=== PATIENT | female | born 1940 | race Hispanic/Latino ===

== ENCOUNTER → 2017-04-07 | Outpatient (CLI) | payer MEDICARE, BC ==
--- NOTE | 2017-04-07 13:07 | REP ---
RIGHT CALCANEUS: Two views of the right calcaneus are performed. There is no acute fracture or dislocation. There is mild inferior and posterior calcaneal spurring. IMPRESSION: Mild calcaneal spurring. Signed by Javy Jordan MD 04/07/2017 01:55 P
== END ==
LOC: M RAD 12:12
PROVIDERS: ATTEND Physician Assistant
DX: M79.671 Pain in right foot (principal); M77.31 Calcaneal spur, right foot

== ENCOUNTER 2017-04-18 16:23 | Inpatient (IN) | payer MEDICARE, BC ==
[~2017-04-18] VITALS: Ht 160 cm; Wt 75.8 kg
[2017-04-18] MEDS ORDERED: OSTETAB4 PO (16:49)
[2017-04-18] MEDS ORDERED: SIMV10TA2 PO (16:49)
[2017-04-18] MEDS ORDERED: D3 A1000 PO (16:49)
[2017-04-18] MEDS ORDERED: FISH100049 PO (16:49)
[2017-04-18] MEDS ORDERED: SUPETAB25 PO (16:49)
[2017-04-18] MEDS ORDERED: PHILCAP4 PO (16:49)
[2017-04-18] MEDS ORDERED: MORPHINE 2 MG/ML 1ML SYRINGE IV PRN ×2 (17:15→22:15)
[2017-04-18] MEDS ORDERED: ONDANSETRON 4MG/2ML VIAL (J2405) IV ONE (17:15)
[2017-04-18] MEDS ORDERED: NS 1,000 ML IV ONE (17:15)
[2017-04-18 17:41] LABS: BASO % 0.3 % (0.0-1.0); EOS # 0.1 10^3/uL (0.0-0.50); EOS % 0.7 % (0.0-3.0); IMMATURE GRANULOCYTE % 0.3 % (0-0); LYMPH # 1.3 10^3/uL (1.5-4.5); LYMPH % 17.6 % (24.0-44.0); MEAN CORPUSCULAR HEMOGLOBIN 33.1 pg (27.0-33.0); MEAN CORPUSCULAR HGB CONC 33.9 g/dl (32.0-36.5); MEAN CORPUSCULAR VOLUME 97.7 fl (80.0-96.0); MONO # 0.7 10^3/uL (0.0-0.8); MONO % 10.1 % (0.0-5.0); NEUTROPHILS # 5.2 10^3/uL (1.8-7.7); PLATELET COUNT, AUTOMATED 210 10^3/uL (150-450); RED CELL DISTRIBUTION WIDTH 12.3 % (11.5-14.5); WHITE BLOOD COUNT 7.3 10^3/uL (4.0-10.0)
[2017-04-18 17:59] LABS: ALBUMIN 3.7 GM/DL (3.2-5.2); ALBUMIN/GLOBULIN RATIO 0.93 (1.00-1.93); ALKALINE PHOSPHATASE 226 U/L (45-117); ALT/SGPT 611 U/L (12-78); AMYLASE 25 U/L (25-115); ANION GAP 7 MEQ/L (8-16); AST/SGOT 345 U/L (7-37); BILIRUBIN,DIRECT 2.1 MG/DL (0.0-0.2); BILIRUBIN,TOTAL 3.3 MG/DL (0.2-1.0); BLOOD UREA NITROGEN 11 MG/DL (7-18); CALCIUM LEVEL 8.8 MG/DL (8.8-10.2); CARBON DIOXIDE LEVEL 28 MEQ/L (21-32); CHLORIDE LEVEL 105 MEQ/L (98-107); CREATININE FOR GFR 0.81 MG/DL (0.55-1.02); GLOMERULAR FILTRATION RATE > 60.0 (>39); GLUCOSE, FASTING 138 MG/DL (83-110); POTASSIUM SERUM 3.5 MEQ/L (3.5-5.1); SODIUM LEVEL 140 MEQ/L (136-145); TOTAL PROTEIN 7.7 GM/DL (6.4-8.2)
--- NOTE | 2017-04-18 18:16 | ECGEPIP ---
Stationary ECG Study [facility] - ED Test Date: 2017-04-18 Pat Name: DAVID HAYES Department: Room: - Gender: F [employer]: nilay : 1940 Requested By: VIVI PATTERSON PA-C. Order Number: [id number] Reading MD: Buck Harrell Measurements Intervals [place] Rate: 72 P: 7 ND: 134 QRS: 31 QRSD: 99 T: 34 QT: 303 QTc: 332 Interpretive Statements SINUS RHYTHM NONSPECIFIC ST & T-WAVE ABNORMALITY NO PRIORS FOR COMPARISON Electronically Signed On 04-18-2017 18:16:35 EST by Buck Harrell
--- NOTE | 2017-04-18 19:20 | REPUSA ---
Clinical history: Right upper quadrant pain. Findings: The pancreas is limited in visualization secondary to overlying bowel gas, but appears ge sly unremarkable. The liver demonstrates uniform echotexture and echogenicity, with no mass lesions. The gallbladder wall is thickened, measuring up to 4 mm. A positive sonographic Bautista's sign was raymundo cited. No gallstones are seen, but there is echogenic non-shadowing material within the gallbladder. The common bile duct measures 5 mm and is within normal limits. The right kidney measures 10.5 cm in length and is unremarkable. There is no ascites. Impression: Gallbladder sludge without evidence of gallstones. Mild gallbladder wall thickening. No b iliary ductal dilatation. However, there is a sonographic Bautista's sign. Follow-up is recommended as clinically indicated.
[2017-04-18] MEDS ORDERED: ISOVUE-370 76% 100ML VIAL (Q9967) As Ordered ONE (20:58)
--- NOTE | 2017-04-18 22:14 | HPEPDOC ---
[facility] Medical History & Physical Date of Admission Apr 18, 2017 History and Physical PRIMARY CARE PROVIDER: Unknown ATTENDING: Dr. Mary Ann Valdes CHIEF COMPLAINT: Abdominal pain HISTORY OF PRESENT ILLNESS: This is a 76-year-old female past medical history of hyperlipidemia presents complaining of abdominal pain. Patient states she's been having intermittent abdominal pain over the past week which is described as sharp and crampy with a bloating sensation. Patient states that the majority of her pain is in her right upper quadrant. Had some nausea however no vomiting. No diarrhea. No chest pain/shortness of breath/ palpitations. Patient does have chills however no fevers. Currently her abdominal pain has resolved after morphine, however she still has chills. In the ED, patient was found to have transaminitis, with concern for choledocholithiasis. CT abdomen and pelvis was ordered however still pending at this time. ED had spoken to Dr. Gaona with plan for ERCP tomorrow. PAST MEDICAL HISTORY: As per HPI PAST SURGICAL HISTORY: Hysterectomy, tonsillectomy, appendectomy SOCIAL HISTORY: Denies tobacco, alcohol, illicit drug use FAMILY HISTORY: Noncontributory ALLERGIES: Please see below. REVIEW OF SYSTEMS: HEENT: Denies sore throat/headache CARDIOVASCULAR: Denies chest pain/palpitations RESPIRATORY: Denies shortness of breath/cough GASTROINTESTINAL: denies nausea/vomiting GENITOURINARY: Denies dysuria/urinary urgency. MUSCULOSKELETAL: Denies myalgias/arthralgias NEUROLOGICAL: Denies any focal weakness HOME MEDICATIONS: Please see below. PHYSICAL EXAMINATION: Vitals: (see below) General: No acute distress, laying comfortably in bed. HEENT: Moist mucous membranes. Neck: No JVD or lymphadenopathy Cardiac: RRR, No murmurs Pulm: Clear to auscultation b/l. No wheezing, rhonchi Abd: NT/ND + BS Ext: No edema or cyanosis LABORATORY DATA: See below. IMAGING: Abdominal ultrasound 04/18/17 Impression: Gallbladder sludge without evidence of gallstones. Mild gallbladder wall thickening. No biliary ductal dilatation. However, there is a sonographic Bautista's sign. Follow-up is recommended as clinically indicated. CT abdomen and pelvis on 04/18/17 pending at this time MICROBIOLOGY: Please see below. ASSESSMENT/PLAN: 1. Choledocholithiasis with possible developing ascending cholangitis no fevers at this time however does have chills. Continue IV fluids. We'll start patient on Zosyn. Blood culture sent. CT of the pelvis pending. Abdominal ultrasound ( see above). Dr. Gaona plans on doing an ERCP tomorrow. Nothing by mouth. Consider surgical consultation after ERCP for possible cholecystectomy in the near future. 2. Hyperlipidemia-will hold by mouth meds for now. DVT prophylaxis heparin subcutaneous. Patient will follow by Dr. Mary Ann Valdes starting 04/19/17 at 7 AM. Vital Signs Vital Signs Date Time Temp Pulse Resp B/P (MAP) Pulse Ox O2 Delivery O2 Flow Rate FiO2 04/18/17 18:49 98.5 75 18 192/86 (121) 97 Room Air 167/82 (110) Laboratory Data Labs 24H Laboratory Tests 2 04/18/17 17:16: Immature Granulocyte % (Auto) 0.3H, White Blood Count 7.3, Red Blood Count 3.90L , Hemoglobin 12.9, Hematocrit 38.1, Mean Corpuscular Volume 97.7H, Mean Corpuscular Hemoglobin 33.1H, Mean Corpuscular Hemoglobin Concent 33.9, Red Cell Distribution Width 12.3, Platelet Count 210, Neutrophils (%) (Auto) 71.0H, Lymphocytes (%) (Auto) 17.6L, Monocytes (%) (Auto) 10.1H, Eosinophils (%) (Auto ) 0.7, Basophils (%) (Auto) 0.3, Neutrophils # (Auto) 5.2, Lymphocytes # (Auto) 1.3L, Monocytes # (Auto) 0.7, Eosinophils # (Auto) 0.1, Basophils # (Auto) 0.0, Immature Granulocyte # (Auto) 0.0, Nucleated Red Blood Cells % (auto) 0.0, Anion Gap 7L, Glomerular Filtration Rate > 60.0, Lactic Acid Level 1.0, Calcium Level 8.8, Aspartate Amino Transf (AST/SGOT) 345H, Alanine Aminotransferase (ALT /SGPT) 611H, Alkaline Phosphatase 226H, Total Bilirubin 3.3H, Direct Bilirubin 2.1H, Total Protein 7.7, Albumin 3.7, Albumin/Globulin Ratio 0.93L, Amylase Level 25, Lipase 85 04/18/17 17:41: Urine Appearance HAZY, Urine Color VANESSA, Urine pH 5.0, Urine Specific [place] 1.024, Urine Protein 1+H, Urine Glucose (UA) 1+H, Urine Ketones TRACEH, Urine Urobilinogen 4.0H, Urine Bilirubin 1+H, Urine Leukocyte Esterase 2+H, Urine Blood NEGATIVE, Urine Nitrite POSITIVE, Urine WBC (Auto) 19H, Urine RBC (Auto) 12H, Urine Hyaline Casts (Auto) 0, Urine Bacteria (Auto) 2+H, Urine Squamous Epithelial Cells 2, Urine Mucus (Auto) SMALL, Urine Sperm (Auto) CBC/BMP Laboratory Tests 04/18/17 17:16 Red Blood Count 3.90 L, Mean Corpuscular Volume 97.7 H, Mean Corpuscular Hemoglobin 33.1 H, Mean Corpuscular Hemoglobin Concent 33.9, Red Cell Distribution Width 12.3, Neutrophils (%) (Auto) 71.0 H, Lymphocytes (%) (Auto) 17.6 L, Monocytes (%) (Auto) 10.1 H, Eosinophils (%) (Auto) 0.7, Basophils (%) ( Auto) 0.3, Neutrophils # (Auto) 5.2, Lymphocytes # (Auto) 1.3 L, Monocytes # ( Auto) 0.7, Eosinophils # (Auto) 0.1, Basophils # (Auto) 0.0 Home Medications Scheduled (Osteo Bi-Flex Advanced Do) 1 Tab Tab, 1 TAB PO DAILY ([facility] YUPIQ Health) 1 Cap Cap, 1 CAP PO DAILY (Super B Complex Maxi) 1 Tab Tab, 1 TAB PO Q2D Cholecalciferol (D3 Adult) 1,000 Unit Chw, 1,000 UNIT PO DAILY Fish Oil (Fish Oil 1000 mg) 1 Cap Cap, 1 CAP PO DAILY Simvastatin (Simvastatin) 10 Mg Tab, 10 MG PO QHS Allergies Coded Allergies: Nitrofurantoin (Verified Allergy, Unknown, chest pain and difficulty breathing , 04/18/17) SEASONAL ALLERGIES (Verified Allergy, Unknown, 04/18/17) ALVIN PARMAR MD Apr 18, 2017 22:14
[2017-04-18] MEDS ORDERED: ONDANSETRON 4MG/2ML VIAL (J2405) IV PRN (22:15)
[2017-04-18] MEDS: NS 1,000 ML IV SCH (23:45)
[2017-04-19] MEDS ORDERED: PIPERACILLIN/TAZOBACTAM SOD 3.375 GM in APPROPRIATE DILUENT 1 EA IV SCH ×2
[2017-04-19] MEDS: HEPARIN SOD (PORCINE) 5000 UNITS/ML VIAL SC SCH ×3 (06:00→21:14)
--- NOTE | 2017-04-19 07:15 | REPUSA ---
CT of the abdomen and pelvis with contrast Clinical statement: Pain. Technique: Multiple axial CT images were obtained from the base of the lungs through the floor of the pelvis utilizing 5 mm axial slices after administration of oral and nonionic intravenous contrast. C oronal and sagittal reconstructions were also obtained. No comparison is available. Findings: Chest: The visualized lung bases are clear. Abdomen: The liver, spleen, pancreas, kidneys, gallbladder, and adrenal glands are unremarkable. The aorta is within normal limits. There is no evidence of abdominal lymphadenopathy or ascites. Pelvis: The bowel is unremarkable, with no obstructive or inflammatory changes. The urinary bladder i s within normal limits. The other pelvic structures appear grossly intact. There is no evidence of pe lvic lymphadenopathy or ascites. Bones: There are no suspicious osseous abnormalities seen. Multilevel degenerative disc disease with spondylosis is seen throughout the lumbar spine. Levoscoliosis is also noted. Impression: 1. No obstructive or inflammatory bowel changes. 2. Moderate scoliosis and spondylotic changes of the lumbar spine as described.
[2017-04-19] MEDS ORDERED: MORPHINE 2 MG/ML 1ML SYRINGE IV ONE (07:30)
[2017-04-19 07:58] LABS: BASO % 0.4 % (0.0-1.0); EOS % 0.6 % (0.0-3.0); IMMATURE GRANULOCYTE % 0.3 % (0-0); LYMPH # 1.7 10^3/uL (1.5-4.5); LYMPH % 22.9 % (24.0-44.0); MEAN CORPUSCULAR HEMOGLOBIN 32.2 pg (27.0-33.0); MEAN CORPUSCULAR VOLUME 94.8 fl (80.0-96.0); MONO # 0.9 10^3/uL (0.0-0.8); MONO % 11.9 % (0.0-5.0); NEUTROPHILS # 4.6 10^3/uL (1.8-7.7); NEUTROPHILS % 63.9 % (36.0-66.0); PLATELET COUNT, AUTOMATED 202 10^3/uL (150-450); RED CELL DISTRIBUTION WIDTH 12.3 % (11.5-14.5); WHITE BLOOD COUNT 7.2 10^3/uL (4.0-10.0)
[2017-04-19 08:00] VITALS: BP 138/93
[2017-04-19 08:15] LABS: ALBUMIN 3.1 GM/DL (3.2-5.2); ALBUMIN/GLOBULIN RATIO 0.79 (1.00-1.93); ALKALINE PHOSPHATASE 203 U/L (45-117); ALT/SGPT 502 U/L (12-78); ANION GAP 9 MEQ/L (8-16); AST/SGOT 287 U/L (7-37); BILIRUBIN,TOTAL 4.4 MG/DL (0.2-1.0); BLOOD UREA NITROGEN 6 MG/DL (7-18); CALCIUM LEVEL 8.2 MG/DL (8.8-10.2); CARBON DIOXIDE LEVEL 24 MEQ/L (21-32); CHLORIDE LEVEL 107 MEQ/L (98-107); CREATININE FOR GFR 0.44 MG/DL (0.55-1.02); GLOMERULAR FILTRATION RATE > 60.0 (>39); GLUCOSE, FASTING 111 MG/DL (83-110); MAGNESIUM LEVEL 1.7 MG/DL (1.8-2.4); POTASSIUM SERUM 3.2 MEQ/L (3.5-5.1); SODIUM LEVEL 140 MEQ/L (136-145)
[2017-04-19] MEDS: NS 1,000 ML IV SCH (09:07)
[2017-04-19] MEDS: PIPERACILLIN/TAZOBACTAM SOD 3.375 GM in APPROPRIATE DILUENT 1 EA IV SCH ×3 (09:08→21:14)
[2017-04-19] MEDS: MAG SULF 1GM/100ML (MAG RUN) 1 GM in APPROPRIATE DILUENT 1 EA IV SCH ×2 (09:11→10:21)
--- NOTE | 2017-04-19 10:37 | IPNPDOC ---
Date Seen The patient was seen on 04/19/17. Progress Note SUBJECTIVE: Patient is a 76-year-old female with past medical history of: hyperlipidemia; presenting on 04/18/2017 with abdominal pain. Today she was seen bedside and had no stated complaints. She states the pain she presented with yesterday has been intermittent over the last week. She lives in [place] and has been in the area since February visiting her son; she states while she has been here, her diet has seen a significant increase in fast food. She presented yesterday with upper right quadrant abdominal pain out of an abundance of caution as she did not want to experience this pain while on the flight back to [place] next week. At present, she denies any abdominal pain or discomfort. She denies headache, lightheadedness, dizziness, chest pain, shortness of breath, difficulty breathing, nausea, vomiting. OBJECTIVE PHYSICAL EXAMINATION: VITAL SIGNS: Please see below. GENERAL: Well-nourished adult female lying supine in hospital bed in no apparent distress HEENT: Atraumatic, normocephalic, EOMI; neck supple CARDIOVASCULAR: Normal S1/S2; regular rate; no noted rubs, murmurs, or gallops RESPIRATORY: Clear to auscultation in all qureshi bilaterally ABDOMINAL: Soft, non-tender, no peritoneal signs, negative Bautista's sign, normoactive bowel sounds EXTREMITIES: Moves all extremities. No peripheral edema noted NEUROLOGICAL: CN II-XII grossly intact PSYCHOLOGICAL: Pleasant mood and affect; alert and conversant LABORATORY DATA: Please see below. MICROBIOLOGY: Please see below. IMAGING: Gallbladder Ultrasound Impression: Gallbladder sludge without evidence of gallstones. Mild gallbladder wall thickening. No biliary ductal dilatation. However, there is a sonographic Bautista 's sign. Follow-up is recommended as clinically indicated. Abdominal CT Impression: 1. No obstructive or inflammatory bowel changes. 2. Moderate scoliosis and spondylotic changes of the lumbar spine as described. DVT prophylaxis ordered?: Heparin 5000units subcutaneous injection every 8 hours ASSESSMENT AND PLAN: This is a 76-year-old female with choledocholithiasis. PROBLEMS: 1. Choledocholithiasis with possible developing ascending cholangitis: GI intends to perform an ERCP today. Continue with Zosyn. Blood cultures are pending. NPO. Could consider surgical consult if ERCP reveals any acute findings. Continue with pain medication, as needed. 2. Abnormal electrolytes: Replenished potassium and magnesium. 3. Hyperlipidemia: NPO. DISPOSITION: Admitted to the PCU. ERCP scheduled for today. Could consider surgical consult. VS[facility] V[facility] Signs/I&O Vital Signs Date Time Temp Pulse Resp B/P (MAP) Pulse Ox O2 Delivery O2 Flow Rate FiO2 04/19/17 07:16 98.2 74 20 182/74 (110) 96 Room Air Laboratory Data 24H LABS Laboratory Tests 2 04/18/17 17:16: Immature Granulocyte % (Auto) 0.3H, White Blood Count 7.3, Red Blood Count 3.90L , Hemoglobin 12.9, Hematocrit 38.1, Mean Corpuscular Volume 97.7H, Mean Corpuscular Hemoglobin 33.1H, Mean Corpuscular Hemoglobin Concent 33.9, Red Cell Distribution Width 12.3, Platelet Count 210, Neutrophils (%) (Auto) 71.0H, Lymphocytes (%) (Auto) 17.6L, Monocytes (%) (Auto) 10.1H, Eosinophils (%) (Auto ) 0.7, Basophils (%) (Auto) 0.3, Neutrophils # (Auto) 5.2, Lymphocytes # (Auto) 1.3L, Monocytes # (Auto) 0.7, Eosinophils # (Auto) 0.1, Basophils # (Auto) 0.0, Immature Granulocyte # (Auto) 0.0, Nucleated Red Blood Cells % (auto) 0.0, Anion Gap 7L, Glomerular Filtration Rate > 60.0, Lactic Acid Level 1.0, Calcium Level 8.8, Aspartate Amino Transf (AST/SGOT) 345H, Alanine Aminotransferase (ALT /SGPT) 611H, Alkaline Phosphatase 226H, Total Bilirubin 3.3H, Direct Bilirubin 2.1H, Total Protein 7.7, Albumin 3.7, Albumin/Globulin Ratio 0.93L, Amylase Level 25, Lipase 85 04/18/17 17:41: Urine Appearance HAZY, Urine Color VANESSA, Urine pH 5.0, Urine Specific [place] 1.024, Urine Protein 1+H, Urine Glucose (UA) 1+H, Urine Ketones TRACEH, Urine Urobilinogen 4.0H, Urine Bilirubin 1+H, Urine Leukocyte Esterase 2+H, Urine Blood NEGATIVE, Urine Nitrite POSITIVE, Urine WBC (Auto) 19H, Urine RBC (Auto) 12H, Urine Hyaline Casts (Auto) 0, Urine Bacteria (Auto) 2+H, Urine Squamous Epithelial Cells 2, Urine Mucus (Auto) SMALL, Urine Sperm (Auto) 04/19/17 06:58: Immature Granulocyte % (Auto) 0.3H, White Blood Count 7.2, Red Blood Count 3.85L , Hemoglobin 12.4, Hematocrit 36.5, Mean Corpuscular Volume 94.8, Mean Corpuscular Hemoglobin 32.2, Mean Corpuscular Hemoglobin Concent 34.0, Red Cell Distribution Width 12.3, Platelet Count 202, Neutrophils (%) (Auto) 63.9, Lymphocytes (%) (Auto) 22.9L, Monocytes (%) (Auto) 11.9H, Eosinophils (%) (Auto ) 0.6, Basophils (%) (Auto) 0.4, Neutrophils # (Auto) 4.6, Lymphocytes # (Auto) 1.7, Monocytes # (Auto) 0.9H, Eosinophils # (Auto) 0.0, Basophils # (Auto) 0.0, Immature Granulocyte # (Auto) 0.0, Nucleated Red Blood Cells % (auto) 0.0, Anion Gap 9, Glomerular Filtration Rate > 60.0, Calcium Level 8.2L, Aspartate Amino Transf (AST/SGOT) 287H, Alanine Aminotransferase (ALT/SGPT) 502H, Alkaline Phosphatase 203H, Total Bilirubin 4.4H, Total Protein 7.0, Albumin 3.1L , Albumin/Globulin Ratio 0.79L, Blood Urea Nitrogen 6L, Creatinine 0.44L, Sodium Level 140, Potassium Level 3.2L, Chloride Level 107, Carbon Dioxide Level 24, Magnesium Level 1.7L CBC/BMP Laboratory Tests 04/18/17 17:16 Red Blood Count 3.90 L, Mean Corpuscular Volume 97.7 H, Mean Corpuscular Hemoglobin 33.1 H, Mean Corpuscular Hemoglobin Concent 33.9, Red Cell Distribution Width 12.3, Neutrophils (%) (Auto) 71.0 H, Lymphocytes (%) (Auto) 17.6 L, Monocytes (%) (Auto) 10.1 H, Eosinophils (%) (Auto) 0.7, Basophils (%) ( Auto) 0.3, Neutrophils # (Auto) 5.2, Lymphocytes # (Auto) 1.3 L, Monocytes # ( Auto) 0.7, Eosinophils # (Auto) 0.1, Basophils # (Auto) 0.0 04/19/17 06:58 Red Blood Count 3.85 L, Mean Corpuscular Volume 94.8, Mean Corpuscular Hemoglobin 32.2, Mean Corpuscular Hemoglobin Concent 34.0, Red Cell Distribution Width 12.3, Neutrophils (%) (Auto) 63.9, Lymphocytes (%) (Auto) 22.9 L, Monocytes (%) (Auto) 11.9 H, Eosinophils (%) (Auto) 0.6, Basophils (%) ( Auto) 0.4, Neutrophils # (Auto) 4.6, Lymphocytes # (Auto) 1.7, Monocytes # (Auto ) 0.9 H, Eosinophils # (Auto) 0.0, Basophils # (Auto) 0.0, Calcium Level 8.2 L, Aspartate Amino Transf (AST/SGOT) 287 H, Alanine Aminotransferase (ALT/SGPT) 502 H, Alkaline Phosphatase 203 H, Total Bilirubin 4.4 H, Total Protein 7.0, Albumin 3.1 L Microbiology Microbiology 04/18/17 Blood Culture, Received Pending 04/18/17 Blood Culture, Received Pending 04/18/17 Urine Culture, Received Pending FRANKY VILLA DO Apr 19, 2017 08:49
[2017-04-19 12:00] VITALS: BP 148/64
[2017-04-19] MEDS: KCL 10MEQ IN 100ML SWI (KRUN) 10 MEQ in APPROPRIATE DILUENT 1 EA IV SCH ×4 (12:00→12:14)
[2017-04-19] MEDS ORDERED: ISOVUE-300 61% 50ML VIAL (Q9967) As Ordered ONE (15:08)
[2017-04-19] MEDS ORDERED: MIDAZOLAM INJ 2 MG/2 ML VIAL (J2250) As Ordered ONE (15:18)
[2017-04-19] MEDS ORDERED: ROCURONIUM BROMIDE 50 MG/5 ML VIAL As Ordered ONE (15:18)
[2017-04-19] MEDS ORDERED: fentaNYL 100 MCG/2 ML INJECTION (J3010) As Ordered ONE (15:19)
[2017-04-19] MEDS ORDERED: PROPOFOL 200 MG/20 ML VIAL As Ordered ONE (15:21)
[2017-04-19] MEDS ORDERED: LIDOCAINE 2% INJ 100 MG/5 ML SDV (FOR ANES.) As Ordered ONE (15:21)
[2017-04-19] MEDS ORDERED: POTASSIUM CHLORIDE 10 MEQ SR TABLET PO ONE ×2 (16:15→21:00)
[2017-04-19] MEDS ORDERED: NEOSTIGMINE 10 MG/10 ML VIAL (J2710) As Ordered ONE (16:16)
[2017-04-19] MEDS ORDERED: ONDANSETRON 4MG/2ML VIAL (J2405) As Ordered ONE ×2 (16:16→17:04)
[2017-04-19] MEDS ORDERED: GLYCOPYRROLATE INJ 0.2 MG/ML 2 ML VIAL As Ordered ONE (16:16)
[2017-04-19] MEDS ORDERED: SUGAMMADEX SODIUM 500 MG/5 ML VIAL (BRIDION) As Ordered ONE (16:29)
--- NOTE | 2017-04-19 16:34 | ROOR ---
Patient Name: Ashley Conway Procedure Date: 04/19/2017 3:31 PM Date of : 1940 Age: 76 Room: Main OR Gender: Female Note Status: Finalized Procedure: ERCP Indications: Abdominal pain of suspected biliary origin, Abnormal abdominal ultrasound, Suspected bile duct stone(s), Jaundice Providers: Jarek GAONA MD Referring MD: 1. No Referring Physician 1. No Referring Physician, Admin. Requesting Provider: Medicines: Monitored Anesthesia Care Complications: No immediate complications. Procedure: Pre-Anesthesia Assessment: - The heart rate, respiratory rate, oxygen saturations, blood pressure, adequacy of pulmonary ventilation, and response to care were monitored throughout the procedure. The Duodenoscope was introduced through the mouth, and advanced to the duodenum and used to inject contrast into the bile duct. The ERCP was accomplished without difficulty. The patient tolerated the procedure well. Findings: The flight engineer inspector film was normal. The esophagus was successfully intubated under direct vision. The scope was advanced to a normal major papilla in the descending duodenum without detailed examination of the pharynx, larynx and associated structures, and upper GI tract. The upper GI tract was grossly normal. A straight Roadrunner wire was passed into the biliary tree. The bile duct was then deeply cannulated over the guidewire. Contrast was injected. I personally interpreted the bile duct images. Ductal flow of contrast was adequate. Image quality was adequate. Contrast extended to the entire biliary tree. On a few films, I visualized a few tiny opacities (or tiny air bubbles) in the distal duct. A 7 mm biliary sphincterotomy was made with a traction (standard) sphincterotome using ERBE electrocautery. There was no post-sphincterotomy bleeding. The biliary tree was swept with a 9 mm balloon starting at the bifurcation. Nothing was found. Impression: - Normal bile duct without dilatation. - A biliary sphincterotomy was performed. - The biliary tree was swept and nothing was found. Recommendation: - Observe patient's clinical course. - She likely passed sludge/stone before we got here today, however depending on tomorrows labs, secondary diagnosis may be considered. Jarek Gaona MD Jarek GAONA MD 04/19/2017 4:34:00 PM This report has been signed electronically. Number of Addenda: 0 Note Initiated On: 04/19/2017 3:31 PM Estimated Blood Loss: Estimated blood loss: none.
[2017-04-19] MEDS ORDERED: METOCLOPRAMIDE INJ 10MG/2ML VIAL (J2765) As Ordered ONE (17:04)
[2017-04-19] MEDS ORDERED: LR 1,000 ML IV SCH (17:15)
[2017-04-19] MEDS ORDERED: METOCLOPRAMIDE INJ 10MG/2ML VIAL (J2765) IV PRN (17:15)
[2017-04-19] MEDS ORDERED: ONDANSETRON 4MG/2ML VIAL (J2405) IV PRN (17:15)
[2017-04-19] MEDS ORDERED: fentaNYL 100 MCG/2 ML INJECTION (J3010) IV PRN (17:15)
[2017-04-19 17:30] VITALS: BP 144/76
--- NOTE | 2017-04-19 17:38 | REP ---
ERCP in OR: 04/19/2017. Clinical history: Choledocholithiasis. Comparison: CT abdomen and pelvis 04/18/2017 with gallbladder ultrasound. Findings: 18 images from C-arm fluoroscopy provided to Dr. Gaona of the gastroenterology division for ERCP. Endoscope present in the duodenum with a wire extending into the common duct. Contrast injection into the common duct seen with retrograde flow into the cystic duct and filling of the gallbladder. There is no cyst, stricture, stenosis or filling defect evident. On image 16. A balloon was inflated proximal to the cystic duct that was pulled through the catheter. Fluoroscopy time 30 seconds. Signed by Nj Hunter MD 04/20/2017 08:18 P
[2017-04-19 20:17] VITALS: BP 138/65
[2017-04-20 00:11] VITALS: BP 107/59
[2017-04-20] MEDS: PIPERACILLIN/TAZOBACTAM SOD 3.375 GM in APPROPRIATE DILUENT 1 EA IV SCH (01:50)
[2017-04-20 04:31] VITALS: BP 127/59
[2017-04-20 05:44] LABS: BASO % 0.4 % (0.0-1.0); EOS # 0.1 10^3/uL (0.0-0.50); IMMATURE GRANULOCYTE % 0.2 % (0-0); LYMPH # 1.6 10^3/uL (1.5-4.5); LYMPH % 29.6 % (24.0-44.0); MEAN CORPUSCULAR HEMOGLOBIN 32.6 pg (27.0-33.0); MEAN CORPUSCULAR HGB CONC 33.7 g/dl (32.0-36.5); MEAN CORPUSCULAR VOLUME 96.7 fl (80.0-96.0); MONO # 0.7 10^3/uL (0.0-0.8); MONO % 12.6 % (0.0-5.0); NEUTROPHILS # 3.1 10^3/uL (1.8-7.7); NEUTROPHILS % 55.2 % (36.0-66.0); PLATELET COUNT, AUTOMATED 214 10^3/uL (150-450); RED CELL DISTRIBUTION WIDTH 12.4 % (11.5-14.5); WHITE BLOOD COUNT 5.5 10^3/uL (4.0-10.0)
[2017-04-20 06:03] LABS: ALBUMIN 2.9 GM/DL (3.2-5.2); ALBUMIN/GLOBULIN RATIO 0.74 (1.00-1.93); ALKALINE PHOSPHATASE 177 U/L (45-117); ALT/SGPT 366 U/L (12-78); ANION GAP 7 MEQ/L (8-16); AST/SGOT 161 U/L (7-37); BILIRUBIN,TOTAL 2.3 MG/DL (0.2-1.0); BLOOD UREA NITROGEN 8 MG/DL (7-18); CALCIUM LEVEL 7.8 MG/DL (8.8-10.2); CARBON DIOXIDE LEVEL 25 MEQ/L (21-32); CHLORIDE LEVEL 110 MEQ/L (98-107); CREATININE FOR GFR 0.59 MG/DL (0.55-1.02); GLOMERULAR FILTRATION RATE > 60.0 (>39); GLUCOSE, FASTING 94 MG/DL (83-110); MAGNESIUM LEVEL 2.3 MG/DL (1.8-2.4); POTASSIUM SERUM 4.4 MEQ/L (3.5-5.1); SODIUM LEVEL 142 MEQ/L (136-145); TOTAL PROTEIN 6.8 GM/DL (6.4-8.2)
[2017-04-20] MEDS: HEPARIN SOD (PORCINE) 5000 UNITS/ML VIAL SC SCH ×3 (06:44→21:00)
[2017-04-20 08:00] VITALS: BP 144/67
--- NOTE | 2017-04-20 11:00 | IPNPDOC ---
Date Seen The patient was seen on 04/20/17. Progress Note SUBJECTIVE: Patient is a 76-year-old female with past medical history of: hyperlipidemia; presenting on 04/18/2017 with abdominal pain. Today, she was seen bedside with no stated complaints. Yesterday, she underwent ERCP, which she tolerated well. She denies headache, lightheadedness , dizziness, chest pain, shortness of breath, difficulty breathing, abdominal pain, nausea, vomiting. OBJECTIVE PHYSICAL EXAMINATION: VITAL SIGNS: Please see below. GENERAL: Well-nourished adult female lying supine in hospital bed in no apparent distress HEENT: Atraumatic, normocephalic; EOMI; mucus membranes moist; neck supple CARDIOVASCULAR: Regular rate; normal S1/S2; no noted rubs, murmurs, or gallops RESPIRATORY: Clear to auscultation in all qureshi bilaterally ABDOMINAL: Soft, non-tender, no peritoneal signs, normoactive bowel sounds EXTREMITIES: Moves all extremities. No noted peripheral edema NEUROLOGICAL: CN II-XII grossly intact PSYCHOLOGICAL: Pleasant mood and affect; alert and conversant. LABORATORY DATA: Please see below. MICROBIOLOGY: Please see below. IMAGING: Gallbladder Ultrasound Impression: Gallbladder sludge without evidence of gallstones. Mild gallbladder wall thickening. No biliary ductal dilatation. However, there is a sonographic Bautista 's sign. Follow-up is recommended as clinically indicated. Abdominal CT Impression: 1. No obstructive or inflammatory bowel changes. 2. Moderate scoliosis and spondylotic changes of the lumbar spine as described. ERCP Impression: Normal bile duct without dilatation. A biliary sphincterotomy was performed. The biliary tree was swept and nothing was found. DVT prophylaxis ordered?: Heparin 5,000 units subcutaneous injection every 8 hours ASSESSMENT AND PLAN: This is a 76-year-old female with choledocholithiasis. PROBLEMS: 1. Choledocholithiasis with possible developing ascending cholangitis: ERCP performed yesterday showing a normal bile duct; stone or sludge may have passed prior to the procedure. Sphincterotomy performed during ERCP. Recommendations include cholecystectomy as bilirubin improved status-post ERCP. Patient elects to have surgery at home in [place]. Discontinued antibiotics as ERCP was negative and no acute gallbladder inflammation noted. Blood cultures have been negative. GI recommended restarting regular diet. 2. Hyperlipidemia: Resume oral medications. DISPOSITION: Admitted to the PCU. ERCP performed yesterday and was negative Recommend cholecystectomy. Primary care provider in [place] is BETSEY Rivas ; [facility], [address], 3rd floor, . Possible discharge in 24 hours. VS, I&O, 24H, Meet Vital Signs/I&O Vital Signs Date Time Temp Pulse Resp B/P (MAP) Pulse Ox O2 Delivery O2 Flow Rate FiO2 04/20/17 04:31 98.9 74 18 127/59 (81) 96 Room Air 04/19/17 16:57 3 I&O- Last 24 Hours up to 6 AM 04/21/17 06:00 Output Total 400 ml Balance -400 ml Laboratory Data 24H LABS Laboratory Tests 2 04/20/17 05:29: Immature Granulocyte % (Auto) 0.2H, White Blood Count 5.5, Red Blood Count 3.59L , Hemoglobin 11.7L, Hematocrit 34.7L, Mean Corpuscular Volume 96.7H, Mean Corpuscular Hemoglobin 32.6, Mean Corpuscular Hemoglobin Concent 33.7, Red Cell Distribution Width 12.4, Platelet Count 214, Neutrophils (%) (Auto) 55.2, Lymphocytes (%) (Auto) 29.6, Monocytes (%) (Auto) 12.6H, Eosinophils (%) (Auto) 2.0, Basophils (%) (Auto) 0.4, Neutrophils # (Auto) 3.1, Lymphocytes # (Auto) 1.6, Monocytes # (Auto) 0.7, Eosinophils # (Auto) 0.1, Basophils # (Auto) 0.0, Immature Granulocyte # (Auto) 0.0, Nucleated Red Blood Cells % (auto) 0.0, Anion Gap 7L, Glomerular Filtration Rate > 60.0, Blood Urea Nitrogen 8, Creatinine 0.59, Sodium Level 142, Potassium Level 4.4#, Chloride Level 110H, Carbon Dioxide Level 25, Calcium Level 7.8L, Aspartate Amino Transf (AST/SGOT) 161H, Alanine Aminotransferase (ALT/SGPT) 366H, Alkaline Phosphatase 177H, Total Bilirubin 2.3H, Total Protein 6.8, Albumin 2.9L, Magnesium Level 2.3, Albumin/Globulin Ratio 0.74L CBC/BMP Laboratory Tests 04/20/17 05:29 Red Blood Count 3.59 L, Mean Corpuscular Volume 96.7 H, Mean Corpuscular Hemoglobin 32.6, Mean Corpuscular Hemoglobin Concent 33.7, Red Cell Distribution Width 12.4, Neutrophils (%) (Auto) 55.2, Lymphocytes (%) (Auto) 29.6, Monocytes (%) (Auto) 12.6 H, Eosinophils (%) (Auto) 2.0, Basophils (%) ( Auto) 0.4, Neutrophils # (Auto) 3.1, Lymphocytes # (Auto) 1.6, Monocytes # (Auto ) 0.7, Eosinophils # (Auto) 0.1, Basophils # (Auto) 0.0, Calcium Level 7.8 L, Aspartate Amino Transf (AST/SGOT) 161 H, Alanine Aminotransferase (ALT/SGPT) 366 H, Alkaline Phosphatase 177 H, Total Bilirubin 2.3 H, Total Protein 6.8, Albumin 2.9 L Microbiology Microbiology 04/18/17 Blood Culture - Preliminary, Resulted No growth after 24 hours . All specim... 04/18/17 Blood Culture - Preliminary, Resulted No growth after 24 hours . All specim... 04/18/17 Urine Culture, Received Pending FRANKY VILLA DO Apr 20, 2017 08:23
[2017-04-20 16:41] VITALS: BP 129/62
[2017-04-20] MEDS ORDERED: SIMVASTATIN 10 MG TAB PO SCH (21:00)
[2017-04-20 21:14] VITALS: BP 151/71
[2017-04-21] VITALS: BP 150/58
[2017-04-21 03:56] VITALS: BP 134/62
[2017-04-21] MEDS: HEPARIN SOD (PORCINE) 5000 UNITS/ML VIAL SC SCH (05:32)
[2017-04-21 07:27] LABS: ALBUMIN/GLOBULIN RATIO 0.73 (1.00-1.93); ALKALINE PHOSPHATASE 178 U/L (45-117); ALT/SGPT 272 U/L (12-78); ANION GAP 7 MEQ/L (8-16); AST/SGOT 74 U/L (7-37); BASO % 0.5 % (0.0-1.0); BILIRUBIN,TOTAL 1.1 MG/DL (0.2-1.0); BLOOD UREA NITROGEN 9 MG/DL (7-18); CALCIUM LEVEL 8.8 MG/DL (8.8-10.2); CARBON DIOXIDE LEVEL 27 MEQ/L (21-32); CHLORIDE LEVEL 107 MEQ/L (98-107); CREATININE FOR GFR 0.45 MG/DL (0.55-1.02); EOS # 0.2 10^3/uL (0.0-0.50); EOS % 2.6 % (0.0-3.0); GLOMERULAR FILTRATION RATE > 60.0 (>39); GLUCOSE, FASTING 94 MG/DL (83-110); IMMATURE GRANULOCYTE % 0.2 % (0-0); LYMPH % 33.8 % (24.0-44.0); MAGNESIUM LEVEL 2.1 MG/DL (1.8-2.4); MEAN CORPUSCULAR HEMOGLOBIN 32.4 pg (27.0-33.0); MEAN CORPUSCULAR HGB CONC 33.8 g/dl (32.0-36.5); MEAN CORPUSCULAR VOLUME 95.8 fl (80.0-96.0); MONO # 0.6 10^3/uL (0.0-0.8); MONO % 10.8 % (0.0-5.0); NEUTROPHILS % 52.1 % (36.0-66.0); PLATELET COUNT, AUTOMATED 217 10^3/uL (150-450); RED CELL DISTRIBUTION WIDTH 12.3 % (11.5-14.5); SODIUM LEVEL 141 MEQ/L (136-145); TOTAL PROTEIN 7.1 GM/DL (6.4-8.2); WHITE BLOOD COUNT 5.8 10^3/uL (4.0-10.0)
--- NOTE | 2017-04-21 10:21 | DS.PDOC ---
Discharge Summary General Date of Admission Apr 18, 2017 at 22:06 Date of Discharge 04/21/2017 Attending Physician: NAVJOT HUNTER MD Specialist/Consultants Involve PCP: BETSEY Rivas; [place] [address] T: F: Discharge Summary PROCEDURES PERFORMED DURING STAY: Endoscopic retrograde cholangiopancreatography (ERCP). ADMITTING DIAGNOSES: 1. Choledocholithiasis. SECONDARY DIAGNOSES: 1. Dyslipidemia. DISCHARGE DIAGNOSES: 1. Choledocholithiasis. COMPLICATIONS/CHIEF COMPLAINT: Choledocholithiasis. HISTORY OF PRESENT ILLNESS: This is a 76-year-old female past medical history of hyperlipidemia presents complaining of abdominal pain. Patient states she's been having intermittent abdominal pain over the past week which is described as sharp and crampy with a bloating sensation. Patient states that the majority of her pain is in her right upper quadrant. Had some nausea however no vomiting. No diarrhea. No chest pain/shortness of breath/palpitations. Patient does have chills however no fevers. Currently her abdominal pain has resolved after morphine, however she still has chills. In the ED, patient was found to have transaminitis, with concern for choledocholithiasis. CT abdomen and pelvis was ordered however still pending at this time. ED had spoken to gastroenterology with plan for ERCP tomorrow. HOSPITAL COURSE: Patient was admitted. Pain managed with morphine, nausea managed with Zofran, Zosyn started for possible developing ascending cholangitis. Gallbladder ultrasound showed positive sonographic Bautista's sign, with mild wall thickening, but without evidence of gallstones. Abdomen CT showed normal gallbladder. Diet was changed to NPO pending ERCP by gastroenterology, which showed no acute processes, with normal bile duct, but suspected that biliary sludge or stone was passed prior to procedure; a biliary sphincterotomy was performed. Patient tolerated procedure well and diet was resumed afterwards, antibiotics were stopped as no evidence of ascending cholangitis was found. Gastroenterology recommended elective cholecystectomy, which patient elected to follow up on back home in [place]. Blood cultures were drawn (negative), urine culture obtained in ED showed E. coli but patient remains asymptomatic. Labs including daily BMP, CBC, liver panel were obtained , which showed elevations in total bilirubin, ALT, AST, and alkaline phosphatase , all which improved throughout admission. Lipase and amylase were obtained and were within normal limits. Magnesium and potassium were noted to be low during admission and were replenished. The patient improved clinically throughout admission, and was stable at time of discharge. DISCHARGE MEDICATIONS: Please see below. ALLERGIES: Please see below. PHYSICAL EXAMINATION ON DISCHARGE: VITAL SIGNS: Please see below. GENERAL: Well-nourished adult female seated up in bed in no apparent distress. HEENT: Atraumatic, normocephalic, EOMI, mucus membranes moist. NECK: Supple, trachea midline, no lymphadenopathy. CARDIOVASCULAR EXAMINATION: Regular rate; normal S1/S2; no noted rubs, murmurs, or gallops. RESPIRATORY EXAMINATION: Clear to auscultation in all qureshi bilaterally. ABDOMINAL EXAMINATION: Soft, non-tender, no peritoneal signs. Normoactive bowel sounds. EXTREMITIES: Moves all extremities; no noted peripheral edema. SKIN: Warm and dry. NEUROLOGICAL EXAMINATION: CN II-XII grossly intact. PSYCHIATRIC EXAMINATION: Pleasant mood and affect; alert and conversant. LABORATORY DATA: Please see below. IMAGING: Gallbladder Ultrasound Impression: Gallbladder sludge without evidence of gallstones. Mild gallbladder wall thickening. No biliary ductal dilatation. However, there is a sonographic Bautista 's sign. Follow-up is recommended as clinically indicated. Abdominal CT Impression: 1. No obstructive or inflammatory bowel changes. 2. Moderate scoliosis and spondylotic changes of the lumbar spine as described. ERCP Impression: Normal bile duct without dilatation. A biliary sphincterotomy was performed. The biliary tree was swept and nothing was found. PROGNOSIS: Good. ACTIVITY: As tolerated. DIET: Regular. DISCHARGE PLAN: Home DISPOSITION: Home. DISCHARGE INSTRUCTIONS: 1. Continue simvastatin as prescribed. 2. Follow up with PCP, Reny Quiroga, upon return to [place]. 3. Consider referral to general surgeon for evaluation for cholecystectomy. 3. Return to ED if symptoms return or worsen. ITEMS TO FOLLOWUP ON ON OUTPATIENT: 1. Possible cholecystectomy. DISCHARGE CONDITION: Stable. TIME SPENT ON DISCHARGE: Greater than 30 minutes. Vital Signs/I&Os Vital Signs Date Time Temp Pulse Resp B/P (MAP) Pulse Ox O2 Delivery O2 Flow Rate FiO2 04/21/17 03:56 99.2 69 18 134/62 (86) 94 Room Air 04/19/17 16:57 3 Laboratory Data Labs 24H Laboratory Tests 2 04/21/17 06:10: Immature Granulocyte % (Auto) 0.2H, White Blood Count 5.8, Red Blood Count 3.55L , Hemoglobin 11.5L, Hematocrit 34.0L, Mean Corpuscular Volume 95.8, Mean Corpuscular Hemoglobin 32.4, Mean Corpuscular Hemoglobin Concent 33.8, Red Cell Distribution Width 12.3, Platelet Count 217, Neutrophils (%) (Auto) 52.1, Lymphocytes (%) (Auto) 33.8, Monocytes (%) (Auto) 10.8H, Eosinophils (%) (Auto) 2.6, Basophils (%) (Auto) 0.5, Neutrophils # (Auto) 3.0, Lymphocytes # (Auto) 2.0, Monocytes # (Auto) 0.6, Eosinophils # (Auto) 0.2, Basophils # (Auto) 0.0, Immature Granulocyte # (Auto) 0.0, Nucleated Red Blood Cells % (auto) 0.0, Anion Gap 7L, Glomerular Filtration Rate > 60.0, Blood Urea Nitrogen 9, Creatinine 0.45L, Sodium Level 141, Potassium Level 4.0, Chloride Level 107, Carbon Dioxide Level 27, Calcium Level 8.8, Aspartate Amino Transf (AST/SGOT) 74H, Alanine Aminotransferase (ALT/SGPT) 272H, Alkaline Phosphatase 178H, Total Bilirubin 1.1#H, Total Protein 7.1, Albumin 3.0L, Magnesium Level 2.1, Albumin/ Globulin Ratio 0.73L CBC/BMP Laboratory Tests 04/21/17 06:10 Red Blood Count 3.55 L, Mean Corpuscular Volume 95.8, Mean Corpuscular Hemoglobin 32.4, Mean Corpuscular Hemoglobin Concent 33.8, Red Cell Distribution Width 12.3, Neutrophils (%) (Auto) 52.1, Lymphocytes (%) (Auto) 33.8, Monocytes (%) (Auto) 10.8 H, Eosinophils (%) (Auto) 2.6, Basophils (%) ( Auto) 0.5, Neutrophils # (Auto) 3.0, Lymphocytes # (Auto) 2.0, Monocytes # (Auto ) 0.6, Eosinophils # (Auto) 0.2, Basophils # (Auto) 0.0, Calcium Level 8.8, Aspartate Amino Transf (AST/SGOT) 74 H, Alanine Aminotransferase (ALT/SGPT) 272 H, Alkaline Phosphatase 178 H, Total Bilirubin 1.1 #H, Total Protein 7.1, Albumin 3.0 L Microbiology Microbiology 04/18/17 Blood Culture - Preliminary, Resulted No Growth after 48 hours. All Specime... 04/18/17 Blood Culture - Preliminary, Resulted No Growth after 48 hours. All Specime... 04/18/17 Urine Culture - Final, Complete Escherichia Coli Discharge Medications Scheduled (Osteo Bi-Flex Advanced Do) 1 Tab Tab, 1 TAB PO DAILY, (Reported) ([employer]) 1 Cap Cap, 1 CAP PO DAILY, (Reported) (Super B Complex Maxi) 1 Tab Tab, 1 TAB PO Q2D, (Reported) Cholecalciferol (D3 Adult) 1,000 Unit Chw, 1,000 UNIT PO DAILY, (Reported) Fish Oil (Fish Oil 1000 mg) 1 Cap Cap, 1 CAP PO DAILY, (Reported) Simvastatin (Simvastatin) 10 Mg Tab, 10 MG PO QHS, (Reported) Allergies Coded Allergies: Nitrofurantoin (Verified Allergy, Unknown, chest pain and difficulty breathing , 04/18/17) SEASONAL ALLERGIES (Verified Allergy, Unknown, 04/18/17) FRANKY VILLA DO Apr 21, 2017 09:29
== END 2017-04-21 10:45 | disposition home or self-care (01) | DRG 445 ==
LOC: M ED 16:23 → M ED INP 22:06 → M PCU 04-19 07:57 → M MS4PR 04-20 20:08
PROVIDERS: ADMIT Internal Medicine; ATTEND General Practice
PROC: BF13YZZ Fluoroscopy of Gallbladder and Bile Ducts using Other Contrast (ICD-10-PCS; principal; 2017-04-19 08:03)
DX: K80.20 Calculus of gallbladder without cholecystitis without obstruction (principal); K83.0 Cholangitis; E78.5 Hyperlipidemia, unspecified; J30.2 Other seasonal allergic rhinitis; Z90.710 Acquired absence of both cervix and uterus; Z79.899 Other long term (current) drug therapy; Z88.8 Allergy status to other drugs, medicaments and biological substances